=== PATIENT | male | born 1985 | race Caucasian/White ===

== ENCOUNTER 2016-08-09 20:04 | Emergency (ER) | payer OTHER ==
[~2016-08-09 20:04] MED LIST: CATAPRES-TTS-10.1 M1 EXT; CATAPRES0.1 MG PO; IBUPROFEN800 MG PO; MOTRIN600 M1 PO; NO MEDICATIONS; PHENERGAN25 MG PO; PREDNISONE PO; ZITHROMAX PO; ZOFRAN ODT4 MG PO
== END 2016-08-09 20:06 | disposition left against medical advice (07) ==
LOC: SED 20:04
DX: T40.1X1A Poisoning by heroin, accidental (unintentional), initial encounter (principal); F17.210 Nicotine dependence, cigarettes, uncomplicated
CPT/HCPCS: 96361; 96374; 99284; J1885